=== PATIENT | female | born 1960 | race Caucasian/White ===

== ENCOUNTER → 2017-04-19 | Outpatient (CLI) | payer MEDICARE, MEDICAID ==
[~2017-04-19] MED LIST: AMITRIPTYLINE H10 M3 PO; ASPIRIN EC81 M1 PO; ATROVENT HFA14 GM INH; BACTRIM DS TAB1 EACH PO; BENTYL 20 MG TA20 M1 PO; CENTRUM SILVER1 EAC4 PO; CIPROFLOXACIN500 M1 PO; CIPROFLOXIN HC2.5 M1 OTIC; COLACE100 MG PO; CYMBALTA30 MG PO; DEXILANT30 MG PO; DHEA50 MG PO; FLAGYL500 MG PO; FLEXERIL PO; GABAPENTIN100 MG PO; GINGER500 MG PO; HYDROCODONE-AP1 EAC6 PO; HYDROCORTISONE30 G9 RECTAL; LEVAQUIN 500 M500 MG PO; LINZESS72 MCG PO; LISINOPRIL2.5 M1 PO; LYRICA 75 MG CA75 MG PO; MAXZIDE-25 MG1 EACH PO; MIRALAX17 GM PO; MOBIC15 MG PO; MYRBETRIQ50 MG PO; NEURONTIN 300300 M1 PO; NEURONTIN300 MG PO; NICOTINE TRANSD21 M1 TRANSDERM; NORCO 5-325 TA1 EACH PO; OMEPRAZOLE40 MG PO; PROBIOTIC1 EAC1 PO; PROTONIX40 M1 PO; PULMICORT0.25 MG/3 INH; SPIRIVA INH; STIOLTO RESPIMAT4 GM IH; TRIAMCINOLONE A80 GM TOP; TUMERIC PO; UNICOMPLEX M TA1 TA1 PO; VENTOLIN HFA 1818 GM INH; VESICARE 5 MG TA5 MG PO; VIIBRYD1 EACH; VIIBRYD20 MG PO; VIIBRYD40 MG PO; VITAMIN E400 UNIT PO; VITAMINC500 PO; XANAX 0.25 MG0.25 MG; XANAX 0.5 MG0.5 MG PO; XANAX XR1 MG PO; XANAX1 MG PO; ZANAFLEX4 MG PO; ZOCOR20 MG PO; ZOFRAN ODT4 MG PO; ZOFRAN ODT4 MG SUBLING
== END ==
LOC: M.RAD 04-10 16:32 → M.MRI 04-12 16:00 → M.RAD 15:08
DX: M18.12 Unilateral primary osteoarthritis of first carpometacarpal joint, left hand (principal); M65.4 Radial styloid tenosynovitis [de Quervain]; M81.0 Age-related osteoporosis without current pathological fracture; M85.80 Other specified disorders of bone density and structure, unspecified site; I63.9 Cerebral infarction, unspecified; I10 Essential (primary) hypertension; Z78.0 Asymptomatic menopausal state; Z90.710 Acquired absence of both cervix and uterus; Z86.73 Personal history of transient ischemic attack (TIA), and cerebral infarction without residual deficits

== ENCOUNTER → 2017-05-11 | Outpatient (CLI) | payer MEDICARE, MEDICAID | LOC: M.MRI 16:30 | DX: M48.062 Spinal stenosis, lumbar region with neurogenic claudication (principal); M51.25 Other intervertebral disc displacement, thoracolumbar region; M47.896 Other spondylosis, lumbar region ==

== ENCOUNTER → 2017-05-31 | Outpatient (CLI) | payer MEDICARE, MEDICAID ==
--- NOTE | 2017-06-01 10:21 | PAINCON ---
[address] [address] PAIN MANAGEMENT CONSULTATION Name: EMILIE ALTAMIRANO Room: [facility] Vanessa#: [id number] Admission: 05/31/17 Attend Phys: Oscar Whitfield Discharge: Date of : 62 Report #: [id number] THIS REPORT FOR: //name// CC: Harry Garcia HISTORY OF PRESENT ILLNESS: The patient is a 57-year-old female being treated for lumbar radiculopathy, thoracolumbar scoliosis, lumbar spondylosis, component of lumbar and lumbosacral spondylosis without myelopathy or radiculopathy. The patient was last seen in pain clinic on 02/08/2017. We did right L2-L3, L3-L4, L4-L5 facet joint injections with good initial improvement of baseline pain. I also did a left wrist injection with transient improvement of symptoms. She ultimately proceeded to have surgery in the left wrist. She does have a dressing over the radial aspect of the distal wrist. There does appear to be a little swelling at the surgical site, though there is no epitrochlear adenopathy appreciated. We had a prolonged visit today, greater than 25 minutes was spent with the patient reviewing significant interval history. She tells me that since I last saw her, she did have a spinal tap and was diagnosed with multiple sclerosis. She was also diagnosed with Lyme disease, though she had been diagnosed with this back in 2006 and has been treated. She is not on Copaxone or any other multiple sclerosis disease modifying agent as of yet. She does have an appointment with her neurologist, Dr. Geiger. We talked today about range of motion exercises including yoga to help with core stability and balance. She has ongoing pain in the right facet. She did have good greater than 60% relief for several weeks relief following the facet joint injection at last visit. I reviewed MRI today, which was accomplished on 05/11/2017. This was compared to a prior study from 09/2015. Fortunately, these studies showed no significant progression of her right convex scoliosis. She does have severe multilevel lumbar spondylosis. This is unchanged from the prior study. She does have some right neural foraminal narrowing, greatest at L4-L5 with flattening of the right L4 nerve root. Fortunately, this does not correlate with significant right L4 radicular pattern pain. PHYSICAL EXAMINATION: Does show a pleasant 57-year-old female, 4 feet 11 inches, 97 pounds, BMI is 19.8 kilograms per meter squared. She does not use tobacco products, but is at risk for osteoporosis. She was counseled regarding same. Again, aforementioned surgical lesion left wrist, suggested she follow up with her orthopedic surgeon. Again, no epitrochlear nodes are noted. Rises from chair using armrest. Lower extremity strength is diminished, but symmetric. Straight leg raise negative. Tender over the apex of the scoliotic [place] [address] PAIN MANAGEMENT CONSULTATION Name: EMILIE ALTAMIRANO Room: [facility] Vanessa#: [id number] Admission: 05/31/17 Attend Phys: Oscar Whitfield Discharge: Date of : 62 Report #: [id number] ASSESSMENT: 1. Lumbosacral spondylosis without myelopathy or radiculopathy. 2. Thoracolumbar scoliosis. 3. Chronic pain requiring complex medication management. 4. Neuropathic pain concerns, recent diagnosis of multiple sclerosis. RECOMMENDATIONS: 1. I have taken the liberty of writing for Lyrica 75 mg b.i.d., 60 tablets with two refills. 2. Hydrocodone 7.5/325, I dispensed 30 tablets, one tablet 2-3 times a day to try and use on a nondaily basis. The patient cautioned about daytime somnolence, mental acuity changes, constipation and habituation. We will seek authorization for repeat right L2-L3, L3-L4, L4-L5 facet joint injections at next visit. Strongly recommend she follow up with her neurologist regarding the use of modifying agents for multiple sclerosis. The patient was discharged in good and stable condition after greater than 25 minutes was spent with the patient, 50% of time spent counseling the patient during her prolonged visit. <ELECTRONICALLY SIGNED> By: Colin Garcia DO 06/01/17 1021 1247 1850Colin Garcia DO /nt
== END ==
LOC: M.PC 03-01 10:40
DX: M54.16 Radiculopathy, lumbar region (principal); M47.896 Other spondylosis, lumbar region; M41.85 Other forms of scoliosis, thoracolumbar region; M47.817 Spondylosis without myelopathy or radiculopathy, lumbosacral region; G89.4 Chronic pain syndrome; G35 Multiple sclerosis; Z79.899 Other long term (current) drug therapy

== ENCOUNTER → 2017-06-28 | Outpatient (CLI) | payer MEDICARE, MEDICAID ==
--- NOTE | 2017-06-30 09:51 | PAINCON ---
[address] [address] PAIN MANAGEMENT CONSULTATION Name: EVELIAEMILIE Fay [id number] Admission: 06/28/17 Attend Phys: Oscar Whitfield Discharge: Date of : 62 Report #: [id number] THIS REPORT FOR: //name// CC: Harry Garcia The patient is a very pleasant 57-year-old female being treated for thoracolumbar spondylosis without myelopathy or radiculopathy, thoracolumbar scoliosis. History of multiple sclerosis, neuropathic pain requiring complex medication management. She was last seen on 05/31/2017. We had intended to proceed with facet joint injections at that time, I had done right L2-L3, L3-L4 and L4-L5 facet joint injections at that time with good improvement of baseline pain. We elected to proceed with repeat facet joint injections at last visit. Unfortunately, there was no power in the clinic and we were unable to do said injections. She does return to the pain clinic today noting pain continues to be problematic in the right low back. It is at the apex of the scoliotic curve. Pain is exacerbated with standing, weight bending and rotation. No radicular symptoms are noted. She incidentally is status post cervical decompressive laminectomy, has component of multiple sclerosis of the intermittent relapsing variety. She has been relatively quiescent. ASSESSMENT: Symptomatic lumbar spondylosis without myelopathy or radiculopathy, component of thoracolumbar scoliosis. RECOMMENDATION: Proceed with right-sided lumbar facet joint injections x 3, L2-L3, L3-L4 and L4-L5. Follow up simply as needed. PROCEDURE NOTE: After written informed consent was obtained, the patient was taken to the fluoroscopy suite and placed in prone position. After sterile prep and drape, skin wheal was raised. A 22-gauge stylet needle was placed to contact the inferior aspect of the right L2-L3, L3-L4 and L4-L5 facet joints. AP and lateral projections showed good needle placement. Approximately 27 mg of triamcinolone plus 1 mL of 0.5% preservative-free bupivacaine was injected in each area. All three needles removed. The area was cleansed. Band-Aid was applied. The patient was monitored for an appropriate period of time, discharged in good and stable condition, noting significant improvement of baseline pain, in fact noting pain was absent on discharge. Fluoroscopy time was under 20 seconds. <ELECTRONICALLY SIGNED> By: Colin Garcia DO 06/30/17 0951 1445 1819Colin Garcia DO /moy
== END | disposition home or self-care (01) ==
LOC: M.PC 02:30
DX: M47.816 Spondylosis without myelopathy or radiculopathy, lumbar region (principal); M41.85 Other forms of scoliosis, thoracolumbar region; Z79.891 Long term (current) use of opiate analgesic; Z88.0 Allergy status to penicillin; Z88.8 Allergy status to other drugs, medicaments and biological substances; Z79.899 Other long term (current) drug therapy; Z98.890 Other specified postprocedural states

== ENCOUNTER → 2017-08-03 | Outpatient (CLI) | payer MEDICARE, MEDICAID | LOC: M.CT 14:00 | DX: K59.01 Slow transit constipation (principal); K21.0 Gastro-esophageal reflux disease with esophagitis ==

== ENCOUNTER 2017-08-12 14:24 | Emergency (ER) | payer MEDICARE, MEDICAID ==
[~2017-08-12] VITALS: Ht 147.3 cm; Wt 41.7 kg
[~2017-08-12 14:24] MED LIST changes: -BACTRIM DS TAB1 EACH PO; -CIPROFLOXIN HC2.5 M1 OTIC
[2017-08-12] MEDS ORDERED: CIPROFLOXIN HC2.5 M1 OTIC (15:12)
[2017-08-12 15:18] VITALS: BP 147/96
== END 2017-08-12 15:19 | disposition home or self-care (01) ==
LOC: M.ERS 14:24
DX: S05.02XA Injury of conjunctiva and corneal abrasion without foreign body, left eye, initial encounter (principal); M79.7 Fibromyalgia; I10 Essential (primary) hypertension; F41.9 Anxiety disorder, unspecified; F32.9 Major depressive disorder, single episode, unspecified; E78.00 Pure hypercholesterolemia, unspecified; F17.210 Nicotine dependence, cigarettes, uncomplicated; Z88.0 Allergy status to penicillin; Z88.8 Allergy status to other drugs, medicaments and biological substances; Z90.710 Acquired absence of both cervix and uterus; Z86.2 Personal history of diseases of the blood and blood-forming organs and certain disorders involving the immune mechanism; X58.XXXA Exposure to other specified factors, initial encounter; Y93.89 Activity, other specified; Y92.89 Other specified places as the place of occurrence of the external cause; Y99.8 Other external cause status

== ENCOUNTER → 2017-08-16 | Outpatient (CLI) | payer MEDICARE, MEDICAID ==
[~2017-08-16] MED LIST changes: +BACTRIM DS TAB1 EACH PO; +CIPROFLOXIN HC2.5 M1 OTIC
--- NOTE | 2017-08-17 07:19 | PAINCON ---
[facility] [address] [place] [address] PAIN MANAGEMENT CONSULTATION Name: EVELIAMEILIE Fay Room: [facility]#: [id number] Admission: 08/16/17 Attend Phys: Oscar Whitfield Discharge: Date of : 62 Report #: [id number] THIS REPORT FOR: //name// CC: Harry Garcia DATE OF SERVICE: 08/16/2017 The patient is a very pleasant 57-year-old female, being treated for thoracolumbar scoliosis, spondylosis without myelopathy, prior history of multiple sclerosis, neuropathic pain requiring complex medication management. Last seen in pain clinic 06/28/2017. We did right lumbar facets with good incremental improvement in baseline pain. The patient returns to pain clinic today noting medication (hydrocodone 7.5/325 three to four a day), Lyrica 75 mg b.i.d. and gabapentin afford some efficacy, but notes that the back pain is quite problematic with activity. She notes that the prior injection afforded a good 50% relief, pain has recurred. She is anxious that she is traveling to [place] to visit her daughter and son-in-law who are getting ready to have her 5th or 6th grandchild. PHYSICAL EXAMINATION: Notes a pleasant 57-year-old female, BMI is 18.9 kg per meter squared, blood pressure 136/85, pulse 79, respirations 16. Rises from chair using armrest, significant thoracolumbar scoliosis. Very tender over the bilateral lumbar facets, at this point L3-L4, L4-L5 bilateral appear to exacerbate pain with rotation and sidebending. No radicular symptoms are noted. Today, I did discuss with the patient functional status. She is unable to walk greater than 50 yards without an assistance device. I did fill out the [place] [employer] form 1775 noting she does require a handicap sticker. Suggested she may use this to board early on the airplane as well. We talked about taking a daily baby aspirin when flying to diminish risk of blood clot. Follow up simply on an as needed basis. PROCEDURE: Bilateral L3-L4 and L4-L5 facet joint injection under fluoroscopy. DESCRIPTION OF PROCEDURE: After informed consent was obtained, the patient was taken to fluoroscopy suite and placed in prone position. After sterile prep and drape, skin was raised. A 22-gauge stylet needle was placed to contact the inferior aspect of the left L3-L4 and L4-L5 facet joint. AP and lateral projections showed good needle placement. A 20 mg triamcinolone plus 1 mL of 0.5% preservative-free bupivacaine were injected on each side. C-arm was turned obliquely to the right side and procedure was repeated. After all four needles were removed, the area was cleansed, Band-Aids applied. The patient was allowed to ambulate to recovery, monitored for an appropriate period of time, discharged in good and stable condition, noting dramatic improvement in baseline pain, [place] [address] PAIN MANAGEMENT CONSULTATION Name: EMILIE ALTAMIRANO Room: [facility] KAMILAH Mendez#: [id number] Admission: 08/16/17 Attend Phys: Oscar Whitfield Discharge: Date of : 62 Report #: [id number] fact noting pain was absent on discharge. Discharged in stable condition with [place] [employer] form 1776 for a handicap stickers. <ELECTRONICALLY SIGNED> By: Colin Garcia DO 08/17/17 0719 1501 2215Colin Garcia DO /
== END | disposition home or self-care (01) ==
LOC: M.PC 03:34
DX: M47.816 Spondylosis without myelopathy or radiculopathy, lumbar region (principal); M41.85 Other forms of scoliosis, thoracolumbar region; G35 Multiple sclerosis; Z79.891 Long term (current) use of opiate analgesic; Z86.73 Personal history of transient ischemic attack (TIA), and cerebral infarction without residual deficits; Z88.0 Allergy status to penicillin; Z88.8 Allergy status to other drugs, medicaments and biological substances; Z79.899 Other long term (current) drug therapy; Z98.890 Other specified postprocedural states

== ENCOUNTER → 2017-09-27 | Outpatient (CLI) | payer MEDICARE, MEDICAID | LOC: M.MRI 10:30 | DX: M41.86 Other forms of scoliosis, lumbar region (principal); M51.36 Other intervertebral disc degeneration, lumbar region; M51.26 Other intervertebral disc displacement, lumbar region; M48.062 Spinal stenosis, lumbar region with neurogenic claudication; M41.85 Other forms of scoliosis, thoracolumbar region ==

== ENCOUNTER → 2017-09-27 | Outpatient (CLI) | payer MEDICARE, MEDICAID ==
--- NOTE | 2017-09-28 07:27 | PAINCON ---
[address] [address] PAIN MANAGEMENT CONSULTATION Name: ALTAMIRANOEMILIE GEOFFREY Room: [facility] KAMILAH Mendez#: [id number] Admission: 09/27/17 Attend Phys: Oscar Whitfield Discharge: Date of : 62 Report #: [id number] THIS REPORT FOR: //name// CC: Harry Garcia DATE OF SERVICE: 09/27/2017 The patient is a very pleasant 57-year-old female, being treated for thoracolumbar scoliosis and spondylosis without myelopathy. Comorbidity includes multiple sclerosis and Lyme disease. To the patient's credit, she quit smoking greater than a year ago, though she does have significant osteoporosis. She is quite petit, 4 feet 11 inches, 90 pounds with a BMI of 18.3 kg per meter squared. She has ongoing pain in the low back, only 30% relief following the facet joint injection at last visit. We had a prolonged visit today reviewing therapeutic options and concerns. The patient feels that her thoracolumbar rotoscoliosis is getting worse. She is "embarrassed by the cosmetic defect." She feels that the "hump" on her low back is getting bigger. Her last diagnostic study was an MRI from about 2 years ago, 09/29/2015. Did note significant right convex thoracolumbar curvature. Degenerative changes with diffuse spondylosis noted, spinal stenosis at L4-L5. PHYSICAL EXAMINATION: Notes a pleasant 57-year-old female with profound thoracolumbar rotoscoliosis. Blood pressure is 115/75, pulse of 76, respirations 16. Upper extremity strength is generally preserved. Rises from chair using armrest. Lumbar flexion is limited, diffuse tenderness in the right of midline thoracolumbar spine. Lower extremity strength is generally preserved. Straight leg raise is negative. Again, subjective pain score is a 7 on a VAS, rates anywhere from a 6-10 depending on activity. Long discussion with the patient today about therapeutic options. Ultimately, we would like to get an MRI of the lumbar spine. We can compare prior study to today's. We will refer to Neurosurgery for possible definitive intervention including lumbar fusion if indicated. Patient would prefer NS somewhere in the [place] area, [place] [address] PAIN MANAGEMENT CONSULTATION Name: EMILIE ALTAMIRANO [id number] Admission: 09/27/17 Attend Phys: Oscar Whitfield Discharge: Date of : 62 Report #: [id number] Yonatan @ [facility]. The study was ultimately accomplished this morning. I reviewed it this afternoon. Unfortunately, they compared the study to a much more previous study, 05/2017. No indication of comparison to the prior 09/29/2015 study. The May study, however, was compared to the prior 2015 study. There is no dramatic change management facilitator the past 2 years; however, with ongoing pain along the right-sided facets, I still think a Neurosurgical evaluation is warranted. ASSESSMENT: Thoracolumbar scoliosis and spondylosis without myelopathy, osteoporosis in a patient with increasing right low back pain, no significant improvement following facet joint injections (right L2-L3, L3-L4 and L4-L5 on 06/28/2017). Continue current medication per primary treating physician. The patient was discharged in good and stable condition after approximately 25-minute visit spent reviewing therapeutic options, discussing diagnostic findings and options. <ELECTRONICALLY SIGNED> By: Colin Garcia DO 09/28/17 0727 1350 2137Colin Garcia DO /nt
== END ==
LOC: M.PC 08-30 04:03
DX: M47.815 Spondylosis without myelopathy or radiculopathy, thoracolumbar region (principal); M41.85 Other forms of scoliosis, thoracolumbar region; M81.0 Age-related osteoporosis without current pathological fracture; M54.5 Low back pain

== ENCOUNTER → 2017-10-23 | Outpatient (CLI) | payer MEDICARE, MEDICAID | LOC: M.ULTRA 16:00 | DX: N95.0 Postmenopausal bleeding (principal); R14.0 Abdominal distension (gaseous); Z90.710 Acquired absence of both cervix and uterus; Z88.0 Allergy status to penicillin ==

== ENCOUNTER 2017-11-07 23:59 | Emergency (ER) | payer MEDICARE, MEDICAID ==
[~2017-11-07] VITALS: Ht 147.3 cm; Wt 40.4 kg
[~2017-11-07 23:59] MED LIST changes: -BACTRIM DS TAB1 EACH PO
[2017-11-08 01:12] VITALS: BP 131/94
== END 2017-11-08 01:13 | disposition home or self-care (01) ==
LOC: M.ERS 23:59
DX: S59.801A Other specified injuries of right elbow, initial encounter (principal); M79.7 Fibromyalgia; I10 Essential (primary) hypertension; F41.9 Anxiety disorder, unspecified; F32.9 Major depressive disorder, single episode, unspecified; E78.00 Pure hypercholesterolemia, unspecified; G35 Multiple sclerosis; F17.210 Nicotine dependence, cigarettes, uncomplicated; Z86.2 Personal history of diseases of the blood and blood-forming organs and certain disorders involving the immune mechanism; Z90.710 Acquired absence of both cervix and uterus; Z88.0 Allergy status to penicillin; Z88.6 Allergy status to analgesic agent; Z88.8 Allergy status to other drugs, medicaments and biological substances; W17.89XA Other fall from one level to another, initial encounter; Y93.89 Activity, other specified; Y92.89 Other specified places as the place of occurrence of the external cause; Y99.8 Other external cause status

== ENCOUNTER 2017-11-20 20:10 | Emergency (ER) | payer MEDICARE, MEDICAID ==
[~2017-11-20] VITALS: Ht 147.3 cm; Wt 40.4 kg
[2017-11-20 20:47] LABS: ABSOLUTE BASOPHILS 0.1 thou/uL (0.0-0.2); ABSOLUTE EOSINOPHILS 0.2 thou/uL (0.0-0.7); ABSOLUTE LYMPHOCYTES 1.4 thou/uL (0.8-5.3); ABSOLUTE MONOCYTES 0.8 thou/uL (0.0-1.2); ABSOLUTE NEUTROPHILS 4.2 thou/uL (1.6-8.1); BASOPHILS 1.2 %; EOSINOPHILS 2.4 %; HEMATOCRIT 35.1 % (37.0-47.0); HEMOGLOBIN 11.9 gm/dL (12.0-15.0); LYMPHOCYTES 21.6 %; MCH 33.1 pg (26.0-34.0); MCHC 33.8 g/dL (28.0-37.0); MONOCYTES 12.1 %; MPV 8.1 fl. (7.2-11.1); NUCLEATED RBCS 0 /100WBC; PLATELET COUNT* 224 thou/uL (150-400); POLYS 62.7 %; RBC 3.58 mil/uL (4.20-5.00); RDW-CV 13.1 % (10.5-14.5); WBC 6.7 thou/uL (4.0-11.0)
[2017-11-20 20:50] LABS: ANION GAP 6 mmol/L (7-16); BUN 27 mg/dL (7-18); CALCIUM 8.1 mg/dL (8.5-10.1); CHLORIDE 105 mmol/L (98-107); CO2 28 mmol/L (21-32); CREATININE 0.9 mg/dL (0.6-1.3); GLUCOSE 93 mg/dL (70-99); POTASSIUM 4.1 mmol/L (3.5-5.1); SODIUM 139 mmol/L (136-145)
[2017-11-20 20:57] LABS: URINE BILIRUBIN NEGATIVE (Negative); URINE BLOOD NEGATIVE (Negative); URINE CLARITY CLEAR; URINE COLOR YELLOW; URINE GLUCOSE-RANDOM NEGATIVE (Negative); URINE KETONES NEGATIVE (Negative); URINE LEUKOCYTES-REFLEX 1+ (Negative); URINE NITRITE-REFLEX NEGATIVE (Negative); URINE PROTEIN NEGATIVE (Negative); URINE SPECIFIC GRAVITY 1.025 (1.005-1.030); URINE UROBILINOGEN 0.2 E.U./dl (0.2-1.0)
[2017-11-20 20:57] LABS: ALBUMIN 3.1 g/dL (3.4-5.0); ALKALINE PHOSPHATASE 68 U/L (46-116); SGOT 19 U/L (15-37); SGPT 24 U/L (30-65); TOTAL BILIRUBIN 0.1 mg/dL (<0.1-1.0); TOTAL PROTEIN 6.4 g/dL (6.4-8.2); TROPONIN-I LEVEL <0.06 ng/mL (<0.06)
[2017-11-20 21:06] LABS: CASTS None Seen /LPF (None Seen); MUCUS None Seen strn/LPF (None Seen); SQUAMOUS >10 Many /LPF (0-3)
[2017-11-20 21:07] LABS: CRYSTALS None Seen /LPF (None Seen); URINE RBC None Seen /HPF (0-2); URINE WBC-REFLEX 6-15 Few /HPF (0-5)
[2017-11-20 21:08] LABS: BACTERIA-REFLEX 1-9 Few /HPF (None Seen)
[2017-11-20] MEDS ORDERED: BACTRIM DS TAB1 EACH PO (21:30)
[2017-11-20 22:03] VITALS: BP 115/73
--- NOTE | 2017-11-21 09:39 | EKG ---
[place] [address] ELECTROCARDIOGRAM REPORT Name: EMILIE ALTAMIRANO [id number] Admission: 11/20/17 Attend Phys: Discharge: 11/20/17 Date of : 62 Report #: [id number] THIS REPORT FOR: //name// [facility] ED Test Date: 2017-11-20 Test Time: 20:40:59 Pat Name: EMILIE ALTAMIRANO Department: Room: Gender: F Oracle Consultant: MARTY : 1960 Requested By: Daja Zhong Order Number: [id number] MD: Terrence Vyas Measurements Intervals [place] Rate: 69 P: 71 [place]: 171 QRS: 63 QRSD: 89 T: 58 QT: 371 QTc: 398 Interpretive Statements Sinus rhythm Anteroseptal infarct, age indeterminate ST elevation, consider inferior injury Lateral leads are also involved Baseline wander in lead(s) V2 Compared to ECG 01/05/2015 17:43:01 Myocardial infarct finding now present ST (T wave) deviation now present Electronically Signed On 11-21-2017 9:39:36 CDT by Terrence Vyas [email or web address] <ELECTRONICALLY SIGNED> By: Terrence Vyas MD, FACC 11/21/17938 39 39 Terrence Vyas MD, FACC /EPI
== END 2017-11-20 22:03 | disposition home or self-care (01) ==
LOC: M.ERS 20:10
PROVIDERS: Nurse Practitioner Family
DX: N39.0 Urinary tract infection, site not specified (principal); M79.7 Fibromyalgia; I10 Essential (primary) hypertension; F41.9 Anxiety disorder, unspecified; F32.9 Major depressive disorder, single episode, unspecified; E78.00 Pure hypercholesterolemia, unspecified; F17.210 Nicotine dependence, cigarettes, uncomplicated; Z86.2 Personal history of diseases of the blood and blood-forming organs and certain disorders involving the immune mechanism; Z88.0 Allergy status to penicillin; Z88.8 Allergy status to other drugs, medicaments and biological substances; Z90.710 Acquired absence of both cervix and uterus

== ENCOUNTER → 2018-01-02 | Outpatient (CLI) | payer MEDICARE, MEDICAID ==
[~2018-01-02] MED LIST changes: +BACTRIM DS TAB1 EACH PO
== END ==
LOC: M.MRI 10:15
DX: M41.86 Other forms of scoliosis, lumbar region (principal); M47.896 Other spondylosis, lumbar region; I10 Essential (primary) hypertension; E78.00 Pure hypercholesterolemia, unspecified; F17.210 Nicotine dependence, cigarettes, uncomplicated; R10.9 Unspecified abdominal pain; R14.0 Abdominal distension (gaseous); Z90.710 Acquired absence of both cervix and uterus; Z80.0 Family history of malignant neoplasm of digestive organs

== ENCOUNTER → 2018-07-31 | Outpatient (CLI) | payer MEDICARE, MEDICAID | LOC: M.NUC 07:24 | DX: R14.0 Abdominal distension (gaseous) (principal); R11.0 Nausea ==

== ENCOUNTER 2018-08-10 15:08 | Emergency (ER) | payer MEDICARE, MEDICAID ==
[~2018-08-10] VITALS: Ht 147.3 cm; Wt 54.4 kg
[2018-08-10 15:23] LABS: URINE BILIRUBIN NEGATIVE (Negative); URINE BLOOD 1+ (Negative); URINE CLARITY CLEAR; URINE COLOR YELLOW; URINE GLUCOSE-RANDOM NEGATIVE (Negative); URINE KETONES NEGATIVE (Negative); URINE LEUKOCYTES-REFLEX 1+ (Negative); URINE NITRITE-REFLEX NEGATIVE (Negative); URINE PROTEIN NEGATIVE (Negative); URINE UROBILINOGEN 0.2 E.U./dl (0.2-1.0)
[2018-08-10 15:34] LABS: CRYSTALS None Seen /LPF (None Seen); MUCUS None Seen strn/LPF (None Seen); SQUAMOUS >10 Many /LPF (0-3)
[2018-08-10 15:35] LABS: CASTS None Seen /LPF (None Seen); URINE RBC 3-10 Few /HPF (0-2)
[2018-08-10 15:35] LABS: ABSOLUTE BASOPHILS 0.1 thou/uL (0.0-0.2); ABSOLUTE EOSINOPHILS 0.1 thou/uL (0.0-0.7); ABSOLUTE LYMPHOCYTES 1.7 thou/uL (0.8-5.3); ABSOLUTE MONOCYTES 0.9 thou/uL (0.0-1.2); ABSOLUTE NEUTROPHILS 8.3 thou/uL (1.6-8.1); BASOPHILS 1.1 %; EOSINOPHILS 0.5 %; HEMATOCRIT 41.2 % (37.0-47.0); HEMOGLOBIN 13.8 gm/dL (12.0-15.0); LYMPHOCYTES 15.4 %; MCH 32.6 pg (26.0-34.0); MCHC 33.5 g/dL (28.0-37.0); MCV 97.5 fL (80.0-100.0); MONOCYTES 8.2 %; MPV 7.2 fl. (7.2-11.1); NUCLEATED RBCS 0 /100WBC; PLATELET COUNT* 294 thou/uL (150-400); POLYS 74.8 %; RBC 4.22 mil/uL (4.20-5.00); RDW-CV 14.1 % (10.5-14.5); WBC 11.2 thou/uL (4.0-11.0)
[2018-08-10 15:36] LABS: BACTERIA-REFLEX 1-9 Few /HPF (None Seen); URINE WBC-REFLEX >25 Many /HPF (0-5)
[2018-08-10 15:43] LABS: CALCIUM 8.8 mg/dL (8.5-10.1); POTASSIUM 3.6 mmol/L (3.5-5.1)
[2018-08-10 15:48] LABS: ALBUMIN 3.6 g/dL (3.4-5.0); TOTAL BILIRUBIN 0.2 mg/dL (<0.1-1.0); TOTAL PROTEIN 7.1 g/dL (6.4-8.2)
[2018-08-10] MEDS ORDERED: MACROBID 100 M100 M2 PO (17:10)
[2018-08-10] MEDS ORDERED: TORADOL 10 MG T10 MG PO (17:24)
[2018-08-10 17:35] VITALS: BP 136/74
[2018-08-11] MEDS ORDERED: NORCO 5-325 TA1 EACH PO (21:22)
== END 2018-08-10 17:36 | disposition home or self-care (01) ==
LOC: M.ERS 15:08
PROVIDERS: Nurse Practitioner Family
DX: K86.1 Other chronic pancreatitis (principal); N39.0 Urinary tract infection, site not specified; I10 Essential (primary) hypertension; F41.9 Anxiety disorder, unspecified; F32.9 Major depressive disorder, single episode, unspecified; K58.9 Irritable bowel syndrome, unspecified; M79.7 Fibromyalgia; G35 Multiple sclerosis; E78.00 Pure hypercholesterolemia, unspecified; F17.210 Nicotine dependence, cigarettes, uncomplicated; Z88.0 Allergy status to penicillin; Z88.8 Allergy status to other drugs, medicaments and biological substances; Z90.710 Acquired absence of both cervix and uterus; Z86.2 Personal history of diseases of the blood and blood-forming organs and certain disorders involving the immune mechanism

== ENCOUNTER 2018-08-11 21:07 | Emergency (ER) | payer MEDICARE, MEDICAID ==
[~2018-08-11] VITALS: Ht 147.3 cm; Wt 40.4 kg
[~2018-08-11 21:07] MED LIST changes: +MACROBID 100 M100 M2 PO; +TORADOL 10 MG T10 MG PO
[2018-08-11 21:22] VITALS: BP 149/81
[2018-08-11] MEDS ORDERED: NORCO 5-325 TA1 EACH PO (21:22)
== END 2018-08-11 21:28 | disposition home or self-care (01) ==
LOC: M.ERS 21:07
DX: R10.31 Right lower quadrant pain (principal); F17.210 Nicotine dependence, cigarettes, uncomplicated; M79.7 Fibromyalgia; I10 Essential (primary) hypertension; F41.9 Anxiety disorder, unspecified; F32.9 Major depressive disorder, single episode, unspecified; K58.9 Irritable bowel syndrome, unspecified; E78.00 Pure hypercholesterolemia, unspecified; Z86.2 Personal history of diseases of the blood and blood-forming organs and certain disorders involving the immune mechanism; Z88.0 Allergy status to penicillin; Z88.8 Allergy status to other drugs, medicaments and biological substances; Z90.710 Acquired absence of both cervix and uterus

== ENCOUNTER → 2018-08-14 | Outpatient (CLI) | payer MEDICARE, MEDICAID | LOC: M.RAD 14:50 | DX: M47.816 Spondylosis without myelopathy or radiculopathy, lumbar region (principal); M41.86 Other forms of scoliosis, lumbar region; M25.551 Pain in right hip; G89.29 Other chronic pain; Z88.8 Allergy status to other drugs, medicaments and biological substances; Z88.0 Allergy status to penicillin ==

== ENCOUNTER → 2018-08-20 | Outpatient (CLI) | payer MEDICARE, MEDICAID | LOC: M.NUC 11:58 | DX: R10.11 Right upper quadrant pain (principal); Z88.8 Allergy status to other drugs, medicaments and biological substances; Z88.0 Allergy status to penicillin ==

== ENCOUNTER → 2018-10-23 | Outpatient (CLI) | payer MEDICARE, MEDICAID | LOC: M.ULTRA 09-26 14:03 | DX: R14.0 Abdominal distension (gaseous) (principal); K86.1 Other chronic pancreatitis; K86.89 Other specified diseases of pancreas; Z90.710 Acquired absence of both cervix and uterus ==

== ENCOUNTER → 2019-01-11 | Outpatient (CLI) | payer MEDICARE, MEDICAID | LOC: M.MRI 14:30 | DX: G35 Multiple sclerosis (principal); M51.36 Other intervertebral disc degeneration, lumbar region; M47.816 Spondylosis without myelopathy or radiculopathy, lumbar region; M41.50 Other secondary scoliosis, site unspecified ==

== ENCOUNTER → 2019-08-08 | Outpatient (CLI) | payer MEDICARE, MEDICAID | LOC: M.CT 15:22 | DX: M41.80 Other forms of scoliosis, site unspecified (principal); R10.11 Right upper quadrant pain ==

== ENCOUNTER 2020-03-09 17:03 | Emergency (ER) | payer MEDICARE, MEDICAID ==
[~2020-03-09] VITALS: Ht 147.3 cm; Wt 45.4 kg
[2020-03-09 17:50] LABS: INFLUENZA A ANTIGEN Negative (Negative); INFLUENZA B ANTIGEN Negative (Negative)
[2020-03-09] MEDS ORDERED: CIPROFLOXIN HC2.5 M1 OPHTHALMIC (18:30)
[2020-03-09] MEDS ORDERED: MAGIC MOUTHWASH SWISH&SPIT (18:30)
[2020-03-09 18:42] LABS: ABSOLUTE BASOPHILS 0.1 thou/uL (0.0-0.2); ABSOLUTE EOSINOPHILS 0.2 thou/uL (0.0-0.7); ABSOLUTE LYMPHOCYTES 1.8 thou/uL (0.8-5.3); ABSOLUTE NEUTROPHILS 9.2 thou/uL (1.6-8.1); BASOPHILS 0.8 %; EOSINOPHILS 1.8 %; HEMATOCRIT 38.4 % (37.0-47.0); LYMPHOCYTES 14.8 %; MCH 33.1 pg (26.0-34.0); MCHC 33.9 g/dL (28.0-37.0); MCV 97.5 fL (80.0-100.0); MPV 7.1 fl. (7.2-11.1); NUCLEATED RBCS 0 /100WBC; PLATELET COUNT* 308 thou/uL (150-400); POLYS 74.6 %; RBC 3.94 mil/uL (4.20-5.00); RDW-CV 12.9 % (10.5-14.5); WBC 12.3 thou/uL (4.0-11.0)
[2020-03-09 18:49] LABS: CALCIUM 8.9 mg/dL (8.5-10.1); CREATININE 0.8 mg/dL (0.6-1.3); POTASSIUM 4.1 mmol/L (3.5-5.1)
[2020-03-09 19:07] LABS: ALBUMIN 3.3 g/dL (3.4-5.0); TOTAL BILIRUBIN 0.2 mg/dL (<0.1-1.0); TOTAL PROTEIN 7.4 g/dL (6.4-8.2)
[2020-03-09] MEDS ORDERED: PREDNISONE 20 M20 MG PO (19:45)
[2020-03-09] MEDS ORDERED: ZPAK PO (19:45)
[2020-03-09] MEDS ORDERED: VENTOLIN HFA 1818 GM INH (19:51)
[2020-03-09 19:59] VITALS: BP 129/83
--- NOTE | 2020-03-10 11:01 | EKG ---
[place] [address] ELECTROCARDIOGRAM REPORT Name: EMILIE ALTAMIRANO Room: [facility]#: [id number] Admission: 03/09/20 Attend Phys: Discharge: 03/09/20 Date of : 62 Date of Service: 03/09/201838 Report #: [id number] THIS REPORT FOR: //name// [facility] ED Test Date: 2020-03-09 Test Time: 18:39:00 Pat Name: EMILIE ALTAMIRANO Department: Room: Gender: F Show Jumping Instructor: [facility] : 1960 Requested By: Adrianna Mosley Order Number: [id number] MD: Harry Rivera Measurements Intervals [place] Rate: 74 P: 141 [place]: 155 QRS: 139 QRSD: 89 T: 138 QT: 367 QTc: 408 Interpretive Statements Sinus or ectopic atrial rhythm Left atrial enlargement Left posterior fascicular block Anterior infarct, age indeterminate Lateral leads are also involved Compared to ECG 11/20/2017 20:40:59 Ectopic atrial rhythm now present Left posterior fascicular block now present Myocardial infarct finding still present Electronically Signed On 03-10-2020 11:01:27 [employer]ION[employer] TEACHER by Harry Rivera [email or web address] <ELECTRONICALLY SIGNED> By: Harry Rivera MD, FACC 03/10/20 1101 1839 1839 Harry Rivera MD, FAC /EPI
== END 2020-03-09 19:59 | disposition home or self-care (01) ==
LOC: M.ERS 17:03
PROVIDERS: Nurse Practitioner Family
DX: K12.30 Oral mucositis (ulcerative), unspecified (principal); J20.9 Acute bronchitis, unspecified; H10.32 Unspecified acute conjunctivitis, left eye; Z20.828 Contact with and (suspected) exposure to other viral communicable diseases; M79.7 Fibromyalgia; I10 Essential (primary) hypertension; K58.9 Irritable bowel syndrome, unspecified; E78.00 Pure hypercholesterolemia, unspecified; G35 Multiple sclerosis; F17.210 Nicotine dependence, cigarettes, uncomplicated; Z88.0 Allergy status to penicillin; Z88.8 Allergy status to other drugs, medicaments and biological substances; Z86.2 Personal history of diseases of the blood and blood-forming organs and certain disorders involving the immune mechanism; Z90.710 Acquired absence of both cervix and uterus

== ENCOUNTER → 2020-07-30 | Outpatient (CLI) | payer MEDICARE, MEDICAID ==
[~2020-07-30] MED LIST changes: +CIPROFLOXIN HC2.5 M1 OPHTHALMIC; +MAGIC MOUTHWASH SWISH&SPIT; +PREDNISONE 20 M20 MG PO; +ZPAK PO
== END ==
LOC: M.RAD 14:17
PROVIDERS: ATTEND Registered Nurse Diabetes Educator
DX: M48.02 Spinal stenosis, cervical region (principal); M25.78 Osteophyte, vertebrae; R10.31 Right lower quadrant pain; M25.512 Pain in left shoulder; Z98.1 Arthrodesis status

== ENCOUNTER → 2020-09-18 | Outpatient (CLI) | payer MEDICARE, MEDICAID | LOC: M.CT 07:57 | PROVIDERS: ATTEND Registered Nurse Diabetes Educator | DX: K59.00 Constipation, unspecified (principal); K86.1 Other chronic pancreatitis; I70.0 Atherosclerosis of aorta ==

== ENCOUNTER → 2020-12-31 | Outpatient (CLI) | payer MEDICARE, MEDICAID ==
[2020-12-31 09:15] LABS: ABSOLUTE BASOPHILS 0.1 thou/uL (0.0-0.2); ABSOLUTE LYMPHOCYTES 1.4 thou/uL (0.8-5.3); ABSOLUTE MONOCYTES 0.7 thou/uL (0.0-1.2); ABSOLUTE NEUTROPHILS 5.1 thou/uL (1.6-8.1); BASOPHILS 0.7 %; EOSINOPHILS 0.7 %; HEMATOCRIT 44.3 % (37.0-47.0); HEMOGLOBIN 15.1 gm/dL (12.0-15.0); LYMPHOCYTES 19.5 %; MCH 33.9 pg (26.0-34.0); MCV 99.8 fL (80.0-100.0); MONOCYTES 9.8 %; MPV 7.5 fl. (7.2-11.1); NUCLEATED RBCS 0 /100WBC; PLATELET COUNT* 333 thou/uL (150-400); POLYS 69.3 %; RBC 4.44 mil/uL (4.20-5.00); RDW-CV 14.1 % (10.5-14.5); WBC 7.3 thou/uL (4.0-11.0)
[2020-12-31 09:30] LABS: ALBUMIN 4.2 g/dL (3.4-5.0); CALCIUM 9.2 mg/dL (8.5-10.1); CREATININE 1.3 mg/dL (0.6-1.3); POTASSIUM 4.8 mmol/L (3.5-5.1); TOTAL BILIRUBIN 0.3 mg/dL (<0.1-1.0); TOTAL PROTEIN 7.1 g/dL (6.4-8.2)
== END ==
LOC: M.RAD 08:26 → M.ULTRA 08:26
PROVIDERS: ATTEND Internal Medicine
DX: K86.1 Other chronic pancreatitis (principal)

== ENCOUNTER → 2021-05-13 | Outpatient (CLI) | payer MEDICARE, MEDICAID | LOC: M.RAD 13:59 | PROVIDERS: ATTEND Registered Nurse Diabetes Educator | DX: U07.1 COVID-19 (principal); J98.4 Other disorders of lung; M51.36 Other intervertebral disc degeneration, lumbar region; M41.86 Other forms of scoliosis, lumbar region ==